=== PATIENT | female | born 1980 | race Caucasian/White ===

== ENCOUNTER → 2021-01-12 08:21 | Outpatient (CLI) | payer BC, SELFPAY ==
--- NOTE | ~2021-01-12 | MMUS_ITS ---
EXAMINATION: MM diagnostic pablo BI w tevin, US breast BI complete HISTORY: Palpable right breast lump TECHNIQUE: Additional 3-D tomosynthesis images of the breasts were performed and synthetic 2-D images were generated. CAD analysis was submitted and interpreted. High resolution complete bilateral breas t ultrasound was performed. COMPARISON: None BREAST PARENCHYMAL COMPOSITION: The breasts are extremely dense, which lowers the sensitivity of mamm ography. FINDINGS: MAMMOGRAPHIC FINDINGS: There are masses centered in the upper outer quadrant of the right breast corresponding to the area o f palpable concern. There are no suspicious masses, calcifications or architectural distortion in the left breast to suggest malignancy. ULTRASOUND: Right breast ultrasound: There are multiple cysts of the right breast, largest measuring 2.7 cm at 10 :00, 6 cm from the nipple. At 5:00, 5 cm from the nipple there is a 5 mm oval hypoechoic mass without posterior features or internal vascularity. At 6:00, 5 cm from the nipple there is a 5 mm oval hypoe choic mass with internal calcification. There is parallel orientation and no significant posterior fe atures or internal vascularity. Left breast ultrasound: There is a 6 mm complicated cyst at 2:00, 3.5 cm from the nipple. There are m ultiple additional cysts scattered throughout the left breast. IMPRESSION: 1. Probable benign right breast masses at 5:00 and 6:00. 2. Recommend 6 month follow-up limited right breast ultrasound BI-RADS category 3, probably benign findings. Reviewed, dictated and finalized at location A. IMPRESSION: 1. Probable benign right breast masses at 5:00 and 6:00. 2. Recommend 6 month follow-up limited right breast ultrasound BI-RADS category 3, probably benign findings.
== END ==
PROVIDERS: Visit Provider Student in an Organized Health Care Education/Training Program
DX: N63.14 Unspecified lump in the right breast, lower inner quadrant (principal)
CPT/HCPCS: 76641; 77062; 77066; G0279